=== PATIENT | female | born 1965 | race Caucasian/White ===

== ENCOUNTER 2017-08-16 11:01 | Observation (INO) | payer MEDICAID ==
[2017-08-16] VITALS (7 sets, daily range): BP systolic 100–158; BP diastolic 48–101
[~2017-08-16] VITALS: Ht 160 cm; Wt 149.3 kg
[2017-08-16] MEDS ORDERED: GLIPIZIDE10 MG PO (11:14)
[2017-08-16] MEDS ORDERED: POTASSIUM CHLOR8 MEQ PO (11:14)
[2017-08-16] MEDS ORDERED: GABAPENTIN 400400 M1 PO (11:15)
[2017-08-16] MEDS ORDERED: BUSPIRONE HCL15 MG PO (11:15)
[2017-08-16] MEDS ORDERED: FUROSEMIDE 40MG40 M1 PO (11:15)
[2017-08-16] MEDS ORDERED: BASAGLAR K100 UNIT/1 SQ (11:16)
[2017-08-16] MEDS ORDERED: METFORMIN HCL1000 MG PO (11:16)
[2017-08-16] MEDS ORDERED: ATORVASTATIN CA20 M1 PO (11:16)
[2017-08-16] MEDS ORDERED: CITALOPRAM HYDR40 MG PO (11:16)
[2017-08-16] MEDS ORDERED: CYCLOBENZAPRINE10 M1 PO (11:17)
--- NOTE | 2017-08-16 11:32 | Emergency Room Report ---
History of Present Illness Time Seen by MD Ruiz Presenting Problem in Triage Pt arrived:Wheelchair Presenting Problem:PT REPORTS BOIL R GROIN AREA AND UNDER L BREAST, PT REPORTS SHE SAW HER PCP ON THURSDAY WAS SUPPOSED TO BEGIN ANTIBIOTICS BUT STATES THE PRESCRIPTION WAS NOT CALLED IN AND SHE WAS UNABLE TO CONTACT HER PCP ABOUT THIS. 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 N Clinical Suspician of Infection? N Mental Status: 1 - Regular (Normal Baseline) Sepsis Risk:Low Sepsis Risk Have you (or family members/close friends) recently traveled outside the [place]? N If Yes, where/when: Have you had exposure to infectious disease within the past month? N TB? Other? Specify: 52 years old white female with type 2 diabetes, hypertension and frequent skin boils. She developed to a boils 1 on the LEFT breast and one on the RIGHT groin 2 days ago. She was seen by her primary care physician and prescribed antibiotic for her that she was unable to obtain. She started vomiting yesterday. Times and multiple diarrhea. She feels weak and dizzy. She denies chest pain or abdominal pain. Source patient, RN notes reviewed, family Exam Limitations no limitations ALLERGIES Coded Allergies: ORANGE JUICE (FOOD) (Mild, . 07/08/17) ceftriaxone (From ROCEPHIN) (Mild, 07/08/17) morphine (Mild, 07/08/17) tetracycline (Mild, 07/08/17) Home Medications Reported Medications Glipizide 10 MG PO BID #60 Potassium Chloride 8 MEQ PO BID #60 Furosemide 40 MG PO DAILY #30 Gabapentin (Gabapentin 400MG Capsule) 400 MG PO TID #90 Buspirone Hcl 15 MG PO BID #60 Atorvastatin Calcium 20 MG PO QHS #30 METFORMIN HCL (Metformin 1000MG) 1,000 MG PO BID #60 Citalopram Hydrobromide (Citalopram HBr) 40 MG PO DAILY #30 Insulin Glargine,Hum.rec.anlog (Basaglar Kwikpen U-100) 30 UNIT SQ QHS #15 Cyclobenzaprine Hcl 10 MG PO BID #30 History Medical History General CAD? No Angina: No [place]: No Hypertension? No Hyperlipidemia? Yes CHF? Yes DVT? No PE? No COPD? Yes Asthma? Yes Anemia? No GERD? No Gastric ulcers? No GI Bleed? No Hernia? No Thyroid Problems? No Hypothyroidism? No CVA? No Seizures? No Diabetes? Yes Insulin Dependent: Yes Insulin Pump: No Home FSBS? No Renal Insuffiency? No End Stage Renal Disease? No UTI? No Stones? Yes GB Disease: No Nephritic Syndrome? No Asplenia? No Hepatitis? No Sickle Cell Disease? No Arthritis? Yes Migraines? No Cataracts? No Glaucoma? No MRSA? Yes HIV? No TB? No Anxiety? Yes Depression? No Cancer? No More? 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 Respiratory no symptoms reported Cardiovascular no symptoms reported Gastrointestinal see HPI, diarrhea, nausea, vomiting Genitourinary no symptoms reported. Musculoskeletal no symptoms reported Skin see HPI (skin the) Psychiatric/Neurological no symptoms reported Physical Exam Vital Signs Vital Signs Date Time Temp Pulse Resp B/P Pulse O2 O2 Flow FiO2 Ox Delivery Rate 08/16 1337 93 18 121/78 91 08/16 1258 86 18 134/69 91 08/16 1151 89 152/99 08/16 1151 89 18 152/99 95 08/16 1148 91 161/109 08/16 1145 86 157/103 08/16 1106 98.3 86 18 158/101 95 Sitting in a wheelchair holding the vomiting bag (Cuco NAVARRO,[facility]) - WBC >12,000 or <4,000 or 10% bands? 2 or more SIRS Criteria Met? B/P:158/101 MAP:120 Creatinine >2.0? UA output<0.5ml/kg/hr for 2 hrs? Platelet count >100,000? Lactate >2.0mmol/1? INR >1.2 or PTT > than 60 sec? Evidence of Organ Dysfunction? Provider documented clinical suspician of infection? N Sepsis Criteria Count: 0 Sepsis Risk: Low Sepsis Risk General Appearance normal appearance, WD/WN Eye Exam - bilateral eye normal exam, bilateral eye PERRL, bilateral eye EOMI Ear, Nose, Throat hearing grossly normal, normal ENT inspection Neck normal inspection, non-tender, supple, full range of motion Respiratory Status Yes: trachea midline, chest symmetrical, non tender chest. No: respiratory distress. Lung Sounds bilateral: normal breath sounds, lungs clear. Cardiovascular normal exam, regular rate/rhythm, no peripheral edema, no gallop, no JVD, no murmur, no rub, normal peripheral pulses Peripheral Pulses Pulses normal Yes Gastrointestinal normal bowel sounds, normal exam, non tender, soft, no organomegaly, no guarding, no rebound, huge pendulous abdomen with multiple folds and intertrigo rash. was unable to locate the groin abscess she was reporting. no guarding no rigidity nor rebound across rebound positive bowel sounds. Back normal inspection, no CVA tenderness, no vertebral tenderness Extremities non-tender, normal range of motion, normal inspection Neurologic alert, hand profiler II-XII nml as tested, normal exam, oriented x 3 Reflexes Reflexes normal Yes Skin rash, 1 inch area of erythema with central ulceration surrounded by irritation from the Band-Aids, she has no purulent discharge no axillary lymph nodes., intertrigo rash in the lower abdominal skin fold as described in abdominal exam Medical Decision Making LABS/Meds/Orders Pt receiving controlled substance in ED? No Results/Orders Laboratory Tests 08/16/17 1320: ABG pH 7.35, ABG pCO2 (Temp Corrct 50.8 H, ABG pO2 (Temp Correct 71.8 L, ABG HCO3 27.2 H, ABG Total CO2 28.7 H, ABG O2 Sat (Calculated) 93.3, ABG Base Excess 1.5, Jose Test ACCEPTABLE, Blood Gas Comments LEFT RADIAL 08/16/17 1255: Urine Color YELLOW, Urine Appearance SL CLOUDY, Urine pH 6.0, Ur Specific [place] 1.020, Urine Protein TRACE H, Urine Ketones NEGATIVE, Urine Blood NEGATIVE, Urine Nitrate NEGATIVE, Urine Bilirubin NEGATIVE, Urine Urobilinogen 0.2, Ur Leukocyte Esterase NEGATIVE, Urine WBC 3-5, Ur Squamous Epith Cells 10- 20, Urine Bacteria 3+, Urine Mucus 1+, Urine Glucose NEGATIVE 08/16/17 1150: Troponin I < 0.02 08/16/17 1150: Lactic Acid 1.5 08/16/17 1150: Sodium 141, Potassium 3.7, Chloride 103, Carbon Dioxide 32, BUN 16, Creatinine 0.9, Estimated Creat Clear 164, Estimated GFR (MDRD) 66, Glucose 216 H, Calcium 8.9, Magnesium 1.9, Total Bilirubin 0.7, AST 63 H, ALT 69, Alkaline Phosphatase 119 H, Total Protein 7.6, Albumin 3.5, Globulin 4.1 H, Albumin/Globulin Ratio 0.9 L, WBC 9.0, RBC 4.53, Hgb 13.1, Hct 39.7, MCV 87.6, RDW 13.7, Plt Count 223 , MPV 8.9, Gran % 62.3, Gran # 5.6, Lymphocytes % 28.3, Monocytes % 4.6, Eosinophils % 4.4, Basophils % 0.3, Lymphocytes # 2.5, Monocytes # 0.4, Eosinophils # 0.4, Basophils # 0.0, PUBS MCHC 32.9, MCH 28.8 Current Medication Orders Sig/Jorge Start time Last Medication Dose Route Stop Time Status Admin Vancomycin HCl 1,250 MG ONCE ONE 08/16 1345 AC IV 08/16 1346 Insulin Human [rDNA 4 UNITS ONCE ONE 08/16 1330 DC 08/16 origin] SC 08/16 1331 1320 Ondansetron HCl 4 MG ONCE ONE 08/16 1330 DC 08/16 IV 08/16 1331 1320 Insulin Human [rDNA 0 .STK-MED ONE 08/16 1319 DC origin] SC Ondansetron HCl 0 .STK-MED ONE 08/16 1317 DC .ROUTE Albuterol/Ipratropium 3 ML ONCE ONE 08/16 1300 DC 08/16 INH 08/16 1301 1310 Ondansetron HCl 0 .STK-MED ONE 08/16 1150 DC .ROUTE Sodium Chloride 1,000 ML .STK-MED ONE 08/16 1150 DC IV Trimethoprim/ 0 .STK-MED ONE 08/16 1150 DC Sulfamethoxazole PO Ondansetron HCl 4 MG ONCE ONE 08/16 1145 DC 08/16 IV 08/16 1146 1159 Sodium Chloride 1,000 ML .Q1H1M 08/16 1145 DC 08/16 IV 08/16 1245 1159 Sodium Chloride 10 ML PRN PRN 08/16 1145 AC IV 08/17 1134 Sodium Chloride 10 ML PRN PRN 08/16 1145 AC IV 08/17 1135 Trimethoprim/ 2 TABLET ONCE ONE 08/16 1145 DCr 08/16 Sulfamethoxazole PO 08/16 1146 1159 Orders Procedure Date/time Status [id number] FAT/LO CHO/BERNARDO 08/16 D Active Decision to admit 08/16 1339 Active RT REQUEST DUONEB 08/16 1300 Active ARTERIAL BLOOD GAS REQUEST 08/16 1300 Active CULTURE, URINE 08/16 1255 Active URINALYSIS/COMPLETE 08/16 1238 Complete CULTURE, BLOOD 08/16 1157 Active LACTIC ACID 08/16 1140 Complete TROPONIN I 08/16 1139 Complete IV SALINE LOCK 08/16 1136 Active ABD ACUTE(MUL VIEWS) 08/16 1133 Active ELECTROCARDIOGRAM REQUEST 08/16 1132 Active ORTHOSTATIC B/P 08/16 1132 Active MAGNESIUM 08/16 1132 Complete DIARRHEA PANEL, PCR 08/16 1132 Active CBC WITH AUTO DIFF 08/16 1132 Complete CHEM 12 PROFILE 08/16 1132 Complete CM/EKG CM/EKG EKG rate, NSR, rhythm, no evid. of ischemic chgs, no ectopy, normal [place], normal EKG, normal sinus rhythm 8110 minutes poor R-wave progression baseline artifact no acute findings XRAY/CT/US XRAY/CT/US XRAY chest XR interpretation by reviewed by me Comment CXR positive PVC KUB small bowel and colonic pattern without ileus. Departure Departure Time of Disposition 1334 Disposition Still a Patient Clinical Impression Primary Impression: COPD (chronic obstructive pulmonary disease) Secondary Impressions: Cellulitis, CHF (congestive heart failure), Lymphedema, Vomiting and diarrhea Condition STABLE Referrals Pablo NAVARRO,Vu Felipe (Family) Additional Instructions She remained nauseaous and attempted to vomit, her pulse ox was 89% so i obtained ABG showed CO2 retention. I called Dr Hughes who is covering Dr. Edgar who agreed to admit her and start her on vancomycin and lasix. SHe was admited in a hemodynamically stable condition. Discharge Counseling Counseled pt/family regarding diagnosis, test results, medications/RX, follow up needs ED Critical Care Critical Care No If Critical Care minutes are documented, the time involved in the performance of seperately reportable procedures was not counted toward critical care time documented. I directly delivered medical care to this critically ill and/or injured patient. Timely evaluation and treatment was necessary to address the significant organ system(s) dysfunction present in this patient. at 1345
[2017-08-16 12:01] LABS: HEMOGLOBIN 13.1 g/dL (12.2-16.2); LYMPH # 2.5 K/mm3 (0.7-4.5); LYMPH % 28.3 % (10-50.0)
[2017-08-16 13:12] LABS: URINE BILIRUBIN - DIPSTICK NEGATIVE (NEG); URINE BLOOD NEGATIVE (NEG)
[2017-08-16 13:29] LABS: ALLEN'S TEST ACCEPTABLE; ARTERIAL ABE 1.5 MMOL/L (-2.4-+2.3); ARTERIAL PO2 71.8 MMHG (80-100); ARTERIAL TCO2 28.7 MMOL/L (23-27); OXYGEN ROOM AIR
--- NOTE | 2017-08-16 14:14 | CONSULT NOTE ---
Pharmacokinetic Consult Date of consult: 08/16/17 Time of consult: 1411 Referring provider: DR. HUGHES Reason for consult: VANCOMYCIN DOSING Allergies: Coded Allergies: ORANGE JUICE (FOOD) (Mild, . 07/08/17) ceftriaxone (From ROCEPHIN) (Mild, 07/08/17) morphine (Mild, 07/08/17) tetracycline (Mild, 07/08/17) Home Medications: Reported Medications Glipizide 10 MG PO BID #60 Potassium Chloride 8 MEQ PO BID #60 Furosemide 40 MG PO DAILY #30 Gabapentin (Gabapentin 400MG Capsule) 400 MG PO TID #90 Buspirone Hcl 15 MG PO BID #60 Atorvastatin Calcium 20 MG PO QHS #30 METFORMIN HCL (Metformin 1000MG) 1,000 MG PO BID #60 Citalopram Hydrobromide (Citalopram HBr) 40 MG PO DAILY #30 Insulin Glargine,Hum.rec.anlog (Basaglar Kwikpen U-100) 30 UNIT SQ QHS #15 Cyclobenzaprine Hcl 10 MG PO BID #30 Height (feet): 5 Height (inches): 3.00 Medical History: CAD? No Angina: No [place]: No Hypertension? No Hyperlipidemia? Yes CHF? Yes DVT? No PE? No COPD? Yes Asthma? Yes Anemia? No GERD? No Gastric ulcers? No GI Bleed? No Hernia? No Thyroid Problems? No Hypothyroidism? No CVA? No Seizures? No Diabetes? Yes Insulin Dependent: Yes Insulin Pump: No Home FSBS? No Renal Insuffiency? No UTI? No Stones? Yes GB Disease: No Nephritic Syndrome? No Asplenia? No Hepatitis? No Sickle Cell Disease? No Arthritis? Yes Migraines? No Cataracts? No Glaucoma? No MRSA? Yes HIV? No TB? No Anxiety? Yes Depression? No Cancer? No More? No Labs: Laboratory Tests 08/16/17 1320: ABG pH 7.35, ABG pCO2 (Temp Corrct 50.8 H, ABG pO2 (Temp Correct 71.8 L, ABG HCO3 27.2 H, ABG Total CO2 28.7 H, ABG O2 Sat (Calculated) 93.3, ABG Base Excess 1.5, Jose Test ACCEPTABLE, Blood Gas Comments LEFT RADIAL 08/16/17 1255: Urine Color YELLOW, Urine Appearance SL CLOUDY, Urine pH 6.0, Ur Specific [place] 1.020, Urine Protein TRACE H, Urine Ketones NEGATIVE, Urine Blood NEGATIVE, Urine Nitrate NEGATIVE, Urine Bilirubin NEGATIVE, Urine Urobilinogen 0.2, Ur Leukocyte Esterase NEGATIVE, Urine WBC 3-5, Ur Squamous Epith Cells 10- 20, Urine Bacteria 3+, Urine Mucus 1+, Urine Glucose NEGATIVE 08/16/17 1150: Troponin I < 0.02 08/16/17 1150: Lactic Acid 1.5 08/16/17 1150: Sodium 141, Potassium 3.7, Chloride 103, Carbon Dioxide 32, BUN 16, Creatinine 0.9, Estimated Creat Clear 164, Estimated GFR (MDRD) 66, Glucose 216 H, Calcium 8.9, Magnesium 1.9, Total Bilirubin 0.7, AST 63 H, ALT 69, Alkaline Phosphatase 119 H, Total Protein 7.6, Albumin 3.5, Globulin 4.1 H, Albumin/Globulin Ratio 0.9 L, WBC 9.0, RBC 4.53, Hgb 13.1, Hct 39.7, MCV 87.6, RDW 13.7, Plt Count 223 , MPV 8.9, Gran % 62.3, Gran # 5.6, Lymphocytes % 28.3, Monocytes % 4.6, Eosinophils % 4.4, Basophils % 0.3, Lymphocytes # 2.5, Monocytes # 0.4, Eosinophils # 0.4, Basophils # 0.0, PUBS MCHC 32.9, MCH 28.8 Microbiology 08/16 1255 URINE CC: Urine Culture - RECD 08/16 1150 BLOOD: Anaerobic Blood Culture - RECD 08/16 1150 BLOOD: Aerobic Blood Culture - RECD Problem List: 1. Cellulitis Plan: BASED ON PATIENT'S FACTORS, RECOMMEND STARTING WITH VANCOMYCIN 2000 MG Q12H AT THIS TIME. WILL OBTAIN TROUGH LEVEL PRIOR TO 3RD DOSE TO DETERMINE CLEARANCE OF VANCOMYCIN. PHARMACY WILL FOLLOW DAILY AND ADJUST APPROPRIATE. ENRIQUE RUIZD at [phone]
[2017-08-16] MEDS ORDERED: CLARITIN REDITAB5 M1 PO (14:35)
[2017-08-16] MEDS ORDERED: NATURE'S BLEND M3 MG PO (15:39)
--- NOTE | 2017-08-16 16:49 | RADIOLOGY REPORT PS360 ---
ABD ACUTE(MUL VIEWS) HISTORY: NVDnausea vomiting diarrhea 3 days Patient Age: 52 years: Female Ordering Physician: Jos Norwood MD TECHNIQUE: Upright chest with flat and upright views of abdomen COMPARISON :rib series FINDINGS Large patient Upright chest. Cardiomegaly. Mild vascular engorgement. Question slight hazy opacity towards right upper lobe. Lung bases are clear unremarkable. No pleural effusion. No free air. The flat and upright views of abdomen reveal no free air. Borderline/slightly dilated small bowel loops towards the RLQ as well as midline at the lower abdomen & projected over the sacrum. Minimal air-fluid levels here.. Findings may reflect enteritis or ileus,. Less likely but not exclude very early obstruction pattern. If symptoms progress consider CT in this large patient to better evaluate. There is minimal stool throughout the colon. Minimal gas. Prominent air-fluid level is also seen at the moderately distended stomach Clips right upper quadrant from cholecystectomy. Vascular clips also seen at the pelvis bilaterally likely from hysterectomy. IMPRESSION. 1. Abdomen: Minimally dilated loops of small bowel seen at lower abdomen towards RLQ. Most likely reflecting enteritis although could reflect localized ileus. Doubt early obstruction at this point. If symptoms progress may warrant follow-up study or CT. .No free air. .Previous cholecystectomy. Likely hysterectomy. Large patient. 2. Upright Chest.. No free air. Cardiomegaly. Mild vascular engorgement. Upper normal markings toward RUL
--- NOTE | 2017-08-16 20:46 | HISTORY AND PHYSICAL REPORT ---
Demographics: Admit date: 08/16/17 Chief complaint: skin infection PRIMARY DIAGNOSIS: COPD Allergies: Coded Allergies: ORANGE JUICE (FOOD) (Mild, . 07/08/17) ceftriaxone (From ROCEPHIN) (Mild, 07/08/17) morphine (Mild, 07/08/17) tetracycline (Mild, 07/08/17) History of present illness: History of present illness: jodi who was seen in the ed with skin infections with assoc vomiting and unable to keep medication down - she had been seen in the pcp and started on abx - pt has diabetes Past medical history: Family HX Family Hx Insignificant Yes Immunization HX DT/Tetanus 1-4 Years Ago Pneumonia Received In Past TB Test in last year No General CAD? No Angina: No [place]: No Hypertension? No Hyperlipidemia? Yes CHF? Yes DVT? No PE? No COPD? Yes Asthma? Yes Anemia? No GERD? No Gastric ulcers? No GI Bleed? No Hernia? Yes Thyroid Problems? No Hypothyroidism? No CVA? No Seizures? No Diabetes? Yes Insulin Dependent: Yes Insulin Pump: No Home FSBS? Yes Renal Insuffiency? No UTI? Yes Stones? Yes BPH? No GB Disease: Yes Nephritic Syndrome? No Asplenia? No Hepatitis? No Sickle Cell Disease? No Arthritis? Yes Migraines? Yes Cataracts? No Glaucoma? No MRSA? Yes HIV? No TB? No Anxiety? Yes Depression? Yes Cancer? No More? No Additional hx: TRACH-REMOVED GTUBE-REMOVED INTUBATION IN PAST Past Surgical HX Previous Surgery?Y GALLBLADDER REMOVED TRACHEOTOMY PARTIAL HYSTERECTOMY TUBAL LIGATION KIDNEY STONES Current home meds: Reported Medications Citalopram Hydrobromide (Citalopram HBr) 40 MG PO QHS #30 TAB Loratadine (Claritin) 5 MG PO DAILY Melatonin 3 MG PO QHS Glipizide 10 MG PO BID #60 Potassium Chloride 8 MEQ PO BID #60 Furosemide 40 MG PO DAILY #30 Gabapentin (Gabapentin 400MG Capsule) 400 MG PO TID #90 Buspirone Hcl 15 MG PO BID #60 Atorvastatin Calcium 20 MG PO QHS #30 METFORMIN HCL (Metformin 1000MG) 1,000 MG PO BID #60 Insulin Glargine,Hum.rec.anlog (Basaglar Kwikpen U-100) 30 UNIT SQ QHS #15 Cyclobenzaprine Hcl 10 MG PO BID #30 Social Hx: Smoking HX Tobacco No Are you/the child exposed to second-hand smoke: No Alcohol Alcohol: No Hx of Drug Use Drug Use? No Patien't marital status is Patient's support system is good Review of systems: Constitutional see HPI, weakness. No: fever. Eyes No: drainage. Ears, Nose, Mouth, Throat No ear discharge, No epistaxis, No throat pain Respiratory No: cough, shortness of breath, SOB with excertion, wheezing. Cardiovascular No chest pain, No palpitations, No syncope Gastrointestinal/Abdominal see HPI, No abdominal pain, No diarrhea, nausea, poor appetite, poor fluid intake, vomiting Genitourinary No: dysuria, frequency, hesitancy, hematuria. Musculoskeletal No: back pain, joint pain, joint swelling, neck pain. Skin No: rash. Neurological No: headache, seizure disorder. Psychiatric No: no symptoms reported. Exam: Lab data for last 24 hours: Laboratory Tests 08/16/17 1642: POC Glucose 139 H 08/16/17 1320: ABG pH 7.35, ABG pCO2 (Temp Corrct 50.8 H, ABG pO2 (Temp Correct 71.8 L, ABG HCO3 27.2 H, ABG Total CO2 28.7 H, ABG O2 Sat (Calculated) 93.3, ABG Base Excess 1.5, Jose Test ACCEPTABLE, Blood Gas Comments LEFT RADIAL 08/16/17 1255: Urine Color YELLOW, Urine Appearance SL CLOUDY, Urine pH 6.0, Ur Specific [place] 1.020, Urine Protein TRACE H, Urine Ketones NEGATIVE, Urine Blood NEGATIVE, Urine Nitrate NEGATIVE, Urine Bilirubin NEGATIVE, Urine Urobilinogen 0.2, Ur Leukocyte Esterase NEGATIVE, Urine WBC 3-5, Ur Squamous Epith Cells 10- 20, Urine Bacteria 3+, Urine Mucus 1+, Urine Glucose NEGATIVE 08/16/17 1150: Troponin I < 0.02 08/16/17 1150: Lactic Acid 1.5 08/16/17 1150: Sodium 141, Potassium 3.7, Chloride 103, Carbon Dioxide 32, BUN 16, Creatinine 0.9, Estimated Creat Clear 164, Estimated GFR (MDRD) 66, Glucose 216 H, Calcium 8.9, Magnesium 1.9, Total Bilirubin 0.7, AST 63 H, ALT 69, Alkaline Phosphatase 119 H, Total Protein 7.6, Albumin 3.5, Globulin 4.1 H, Albumin/Globulin Ratio 0.9 L, WBC 9.0, RBC 4.53, Hgb 13.1, Hct 39.7, MCV 87.6, RDW 13.7, Plt Count 223 , MPV 8.9, Gran % 62.3, Gran # 5.6, Lymphocytes % 28.3, Monocytes % 4.6, Eosinophils % 4.4, Basophils % 0.3, Lymphocytes # 2.5, Monocytes # 0.4, Eosinophils # 0.4, Basophils # 0.0, PUBS MCHC 32.9, MCH 28.8 Microbiology 08/16 1255 URINE CC: Urine Culture - RECD 08/16 1150 BLOOD: Anaerobic Blood Culture - RECD 08/16 1150 BLOOD: Aerobic Blood Culture - RECD Admission vital signs: 1ST Vital Signs Result Date Time Pulse Ox 95 08/16 1106 B/P 158/101 08/16 1106 Temp 98.3 08/16 1106 Pulse 86 08/16 1106 Resp 18 08/16 1106 O2 Delivery ROOM AIR 08/16 1432 Exam General appearance: awake, obese Eyes: PERRLA ENT: dry mucous membranes Neck: no JVD Cardiovascular: regular rate & rhythm, murmur Respiratory: no respiratory distress, diminished breath sounds ABD: soft Genitourinary: no hematuria Extremities: moves all Musculoskeletal: equal muscle strength Skin: boils on rt groin and ant chest area w/o abscess- tender 2x2 cm 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 COPD (chronic obstructive pulmonary disease) 2. Cellulitis 3. Obesity Plan: see above at 205
[2017-08-17 04:30] VITALS: BP 118/58
[2017-08-17 06:59] LABS: HEMOGLOBIN 12.9 g/dL (12.2-16.2); LYMPH # 3.5 K/mm3 (0.7-4.5); LYMPH % 34.1 % (10-50.0)
--- NOTE | 2017-08-17 07:19 | PHARMACY CLINIC NOTE ---
Patient Demographics Patient Demographics Admission date: 08/16/17 Date: 08/17/17 Time: 716 Allergies Coded Allergies: ORANGE JUICE (FOOD) (Mild, . 07/08/17) ceftriaxone (From ROCEPHIN) (Mild, 07/08/17) morphine (Mild, 07/08/17) tetracycline (Mild, 07/08/17) HEIGHT- FT: 5 IN: 3.00 K.260 VTE General Information Labs: Laboratory Tests 08/17 08/16 0630 1150 Hematology Hgb (12.2 - 16.2 g/dL) 12.9 13.1 Hct (37.0 - 47.0 %) 40.5 39.7 Plt Count (142 - 424 K/mm3) 251 223 Disclaimer The following section includes nursing documentation that has been pulled in for pharmacy review. Patient's VTE score: 7 Patient's VTE Risk: MOD RISK Clinical trial participant? No VTE prophylaxis NQF [id number] VTE prophylaxis ordered? Yes Type of prophylaxis/treatment: CYRUS at 0718
[2017-08-17 07:52] VITALS: BP 106/55
--- NOTE | 2017-08-17 08:34 | ACUTE CARE PROGRESS NOTE (QUA) ---
See Addendum Progress Notes Subjective Date 08/17/17 Time 0831 Note doing better Patient/family reports: feeling better Nursing reports: no complaints Objective Findings Last VS-Temp:97.0 B/P:106/55 Pulse:88 Resp:20 SaO2:95 ROOM AIR Last weight lbs:329 oz:1 K.26 Method:Bed Scales Exam General appearance: alert, awake Eyes: anicteric, PERRLA ENT: dry mucous membranes Neck: no JVD Cardiovascular: regular rate & rhythm Respiratory: no respiratory distress ABD: soft Genitourinary: no hematuria Extremities: moves all Musculoskeletal: equal muscle strength Skin: no abscess abd rt groin and lt breast lesions better 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 COPD (chronic obstructive pulmonary disease) 2. Cellulitis 3. Obesity Patient condition Improving Plan: order additional tests This inpt stay is expected to cross 2 MNs from start of care Yes Comments: will do pt eval and check o2 on room air at 0834
--- NOTE | 2017-08-17 08:34 | ACUTE CARE PROGRESS NOTE (QUA) ---
See Addendum Progress Notes Subjective Date 08/17/17 Time 0831 Note doing better Patient/family reports: feeling better Nursing reports: no complaints Objective Findings Last VS-Temp:97.0 B/P:106/55 Pulse:88 Resp:20 SaO2:95 ROOM AIR Last weight lbs:329 oz:1 K.26 Method:Bed Scales Exam General appearance: alert, awake Eyes: anicteric, PERRLA ENT: dry mucous membranes Neck: no JVD Cardiovascular: regular rate & rhythm Respiratory: no respiratory distress ABD: soft Genitourinary: no hematuria Extremities: moves all Musculoskeletal: equal muscle strength Skin: no abscess abd rt groin and lt breast lesions better 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 COPD (chronic obstructive pulmonary disease) 2. Cellulitis 3. Obesity Patient condition Improving Plan: order additional tests This inpt stay is expected to cross 2 MNs from start of care Yes Comments: will do pt eval and check o2 on room air at 0834
[2017-08-17 08:41] VITALS: BP 106/55
--- NOTE | 2017-08-17 13:13 | CONSULT NOTE ---
Pharmacokinetic Consult Date of consult: 08/17/17 Time of consult: 1312 Referring provider: DR. HUGHES Reason for consult: VANCOMYCIN TROUGH LEVEL Allergies: Coded Allergies: ORANGE JUICE (FOOD) (Mild, . 07/08/17) ceftriaxone (From ROCEPHIN) (Mild, 07/08/17) morphine (Mild, 07/08/17) tetracycline (Mild, 07/08/17) Home Medications: Reported Medications Cyclobenzaprine Hcl 10 MG PO BID #30 TAB Citalopram Hydrobromide (Citalopram HBr) 40 MG PO QHS #30 TAB Loratadine (Claritin) 5 MG PO DAILY Melatonin 3 MG PO QHS Glipizide 10 MG PO BID #60 Potassium Chloride 8 MEQ PO BID #60 Furosemide 40 MG PO DAILY #30 Gabapentin (Gabapentin 400MG Capsule) 400 MG PO TID #90 Buspirone Hcl 15 MG PO BID #60 Atorvastatin Calcium 20 MG PO QHS #30 METFORMIN HCL (Metformin 1000MG) 1,000 MG PO BID #60 Insulin Glargine,Hum.rec.anlog (Basaglar Kwikpen U-100) 30 UNIT SQ QHS #15 Height (feet): 5 Height (inches): 3.00 Medical History: CAD? No Angina: No ID: No Hypertension? No Hyperlipidemia? Yes CHF? Yes DVT? No PE? No COPD? Yes Asthma? Yes Anemia? No GERD? No Gastric ulcers? No GI Bleed? No Hernia? Yes Thyroid Problems? No Hypothyroidism? No CVA? No Seizures? No Diabetes? Yes Insulin Dependent: Yes Insulin Pump: No Home FSBS? Yes Renal Insuffiency? No UTI? Yes Stones? Yes BPH? No GB Disease: Yes Nephritic Syndrome? No Asplenia? No Hepatitis? No Sickle Cell Disease? No Arthritis? Yes Migraines? Yes Cataracts? No Glaucoma? No MRSA? Yes HIV? No TB? No Anxiety? Yes Depression? Yes Cancer? No More? No Additional hx: TRACH-REMOVED GTUBE-REMOVED INTUBATION IN PAST Labs: Laboratory Tests 08/17/17 1240: Vancomycin Trough 16.2 08/17/17 1140: POC Glucose 216 H 08/17/17 0639: POC Glucose 167 H 08/17/17 0630: Sodium 141, Potassium 3.6, Chloride 103, Carbon Dioxide 32, BUN 14, Creatinine 0.9, Estimated Creat Clear 172, Estimated GFR (MDRD) 66, Glucose 182 H, Calcium 8.6, WBC 10.2, RBC 4.52, Hgb 12.9, Hct 40.5, MCV 89.5, RDW 13.7, Plt Count 251, MPV 8.4, Gran % 56.5, Gran # 5.8, Lymphocytes % 34.1, Monocytes % 5.5, Eosinophils % 3.3, Basophils % 0.5, Lymphocytes # 3.5, Monocytes # 0.6, Eosinophils # 0.3, Basophils # 0.1, PUBS MCHC 31.9, MCH 28.6 08/16/17 2020: POC Glucose 216 H 08/16/17 1642: POC Glucose 139 H 08/16/17 1320: ABG pH 7.35, ABG pCO2 (Temp Corrct 50.8 H, ABG pO2 (Temp Correct 71.8 L, ABG HCO3 27.2 H, ABG Total CO2 28.7 H, ABG O2 Sat (Calculated) 93.3, ABG Base Excess 1.5, Jose Test ACCEPTABLE, Blood Gas Comments LEFT RADIAL Problem List: 1. Cellulitis Plan: BASED ON PATIENT FACTORS, RECOMMEND CONTINUING VANCOMYCIN 2 GM IV Q12H. PHARMACY WILL CONTINUE TO MONITOR DAILY AND ADJUST APPROPRIATE. at 1313
[2017-08-17 16:00] VITALS: BP 98/57
[2017-08-17 20:00] VITALS: BP 149/91
[2017-08-17 20:30] VITALS: BP 149/91
[2017-08-18 04:22] VITALS: BP 145/89
[2017-08-18 07:20] VITALS: BP 139/71
--- NOTE | 2017-08-18 08:04 | ACUTE CARE PROGRESS NOTE (QUA) ---
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 COPD (chronic obstructive pulmonary disease) 2. Cellulitis 3. Obesity Patient condition Improving Plan: initiate discharge plan This inpt stay is expected to cross 2 MNs from start of care Yes Comments: will need home services and po abx and does qualify for o2 at 0803
--- NOTE | 2017-08-18 08:04 | ACUTE CARE PROGRESS NOTE (QUA) ---
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 COPD (chronic obstructive pulmonary disease) 2. Cellulitis 3. Obesity Patient condition Improving Plan: initiate discharge plan This inpt stay is expected to cross 2 MNs from start of care Yes Comments: will need home services and po abx and does qualify for o2 at 0803
--- NOTE | 2017-08-18 08:13 | DISCHARGE SUMMARY STANDARD ---
Demographics Admit date: 08/16/17 Discharge date: 08/18/17 History of present illness History of present illness wf who was seen in the ed with skin infections with assoc vomiting and unable to keep medication down - she had been seen in the pcp and started on abx - pt has diabetes Hospital Course Hospital Course: pt with iv abx as she had not responded to op treatment and had factors of obesity and diabetes mellitus- pt with low sat and will need home o2 as sat to 77 on room air and will need home health and ot/pt and intermediate Discharge diagnoses Problem List 1. COPD (chronic obstructive pulmonary disease) 2. Cellulitis 3. Obesity 4. Diabetes mellitus Medications Medications: Discharge meds are as noted. Comment: will follow in office next week Follow up Follow up in office in: 7 DAYS with: Lynda Betancourt at 0813
--- NOTE | 2017-08-18 08:13 | DISCHARGE SUMMARY STANDARD ---
Demographics Admit date: 08/16/17 Discharge date: 08/18/17 History of present illness History of present illness wf who was seen in the ed with skin infections with assoc vomiting and unable to keep medication down - she had been seen in the pcp and started on abx - pt has diabetes Hospital Course Hospital Course: pt with iv abx as she had not responded to op treatment and had factors of obesity and diabetes mellitus- pt with low sat and will need home o2 as sat to 77 on room air and will need home health and ot/pt and usp Discharge diagnoses Problem List 1. COPD (chronic obstructive pulmonary disease) 2. Cellulitis 3. Obesity 4. Diabetes mellitus Medications Medications: Discharge meds are as noted. Comment: will follow in office next week Follow up Follow up in office in: 7 DAYS with: Lynda Betancourt at 0813
[2017-08-18 14:48] VITALS: BP 139/71
--- OUTSIDE RECORDS SUMMARY | 2017-09-08 21:21 | External Medical Summary Rpt ---
Author Author , MIKAELA AL Address Unknown Phone [email or web address] Purpose Continuity of Care Document - 08-16-2017 through 2016 Allergies, Adverse Reactions, Alerts Clinical Alert Notifications Alert Diabetes: no A1C in the last 6 months Diabetes: no eye exam in the last 365 days Diabetes: no influenza vaccine in the last 365 days Diabetes: no lipid panel in the last 365 days Diabetes: no urine protein screening in the last 365 days Medications Na ND Rx Da Fi Fi Am Da Di Ph RX Ph St me C No te ll ll ou ys ag ar # ys at rm s nt no ma ic us Or Da si cy ia de te s n re d FU 69 09 10 30 30 00 EA Ac RO 31 -1 -[address] ti SE 50 5- 6- 00 00 SI ve OR 11 20 20 50 DE DE 71 17 17 18 0 09 PH 40 AR MA MG CY TA OF BL CY ET NT HI AN A IN C ME 68 09 10 60 30 00 EA Ac TF 38 -1 -[address] ti OR 20 5- 6- 00 00 SI ve OR 76 20 20 50 DE N 01 17 17 18 HC 0 10 PH L AR 1, MA 00 CY 0 MG OF CY TA NT BL HI ET AN A IN C GL 00 09 10 60 30 00 EA Ac IP 78 -1 -[address] ti IZ 11 5- 6- 00 00 SI ve ID 45 20 20 50 DE E 30 17 17 18 10 1 11 PH AR MG MA CY TA BL OF ET CY NT HI AN A IN C PO 00 09 10 60 30 00 EA Ac TA 57 -1 -[address] ti SS 40 5- 6- 00 00 SI ve IU 27 20 20 50 DE M 40 17 17 18 CL 1 12 PH AR ER MA 8 CY ME OF Q CY TA NT BL HI ET AN A IN C BU 00 09 10 60 30 00 EA Ac SP 37 -1 -[address] ti IR 81 5- 6- 00 00 SI ve ON 16 20 20 50 DE E 50 17 17 18 HC 5 13 PH L AR 15 MA CY MG OF TA CY BL NT ET HI AN A IN C CI 13 09 10 30 30 00 EA Ac TA 66 -1 -[address] ti LO 80 5- 6- 00 00 SI ve MS 01 20 20 50 DE AM 10 17 17 18 5 14 PH HB AR R MA 40 CY MG OF CY TA NT BL HI ET AN A IN C AT 60 09 10 30 30 00 EA Ac OR 50 -1 -[address] ti VA 52 5- 6- [address] 57 20 20 50 DE AT 90 17 17 18 IN 9 15 PH AR 20 MA CY MG OF TA CY BL NT ET HI AN A IN C BA 00 09 10 15 30 00 EA Ac SA 00 -1 -[address] ti GL 27 5- 6- 00 00 SI ve AR 71 20 20 50 DE 55 17 17 18 10 9 16 PH 0 AR UN MA IT CY /M L OF KW CY IK NT PE HI N AN A IN C CY 00 09 10 30 30 00 EA Ac CL 37 -1 -[address] ti OB 80 5- 6- 00 00 SI ve EN 75 20 20 50 DE ZA 11 17 17 18 MS 0 23 PH IN AR E MA 10 CY MG OF CY TA NT BL HI ET AN A IN C GA 67 09 10 90 30 00 EA Ac BA 87 -1 -[address] ti PE 70 5- 6- 00 00 SI ve NT 22 20 20 50 DE IN 40 17 17 18 5 24 PH 40 AR 0 MA MG CY CA OF PS CY UL NT E HI AN A IN C UN 08 09 10 10 30 00 EA Ac IF 47 -1 -[address] ti IN 03 5- 6- 00 00 SI ve E 52 20 20 0 50 DE PE 90 17 17 18 NT 1 17 PH IP AR S MA 12 CY MM OF 29 CY G NT HI AN A IN C Results Labs Lab Lab Date Result Refere Interp Status Commen Order Detail nces retati t Range on Hemoglobin A1c in Blood (08-26-2017 08:19) Hemoglo 8.5 % 0.0% High complet bin A1c 017 - ed in 08:19 7.0% Blood Gas panel in Arterial blood (08-16-2017 13:20) Arteria ACCEPTA complet l 017 BLE ed patency 13:20 Wrist artery --pre arteria l punctur e SOURCE LEFT complet 017 RADIAL ed 13:20 Urinalysis dipstick W Reflex Microscopic panel in Urine (08-16-2017 12:55) Bacteri 3+ O complet a 017 ed [Presen 12:55 ce] in Urine sedimen t by Light microsc opy Mucus 1+ OCC complet [Presen 017 ed ce] in 12:55 Urine sedimen t by Light microsc opy Epithel 10-20 0#/hp complet ial 017 f - ed cells.s 12:55 5#/hp quamous f [Presen ce] in Urine sedimen t by Microsc opy high power field Leukocy 3-5 O complet evette 017 wbc/hpf ed [#/volu 12:55 me] in Urine Urinalysis dipstick W Reflex Microscopic panel in Urine (08-16-2017 12:55) Appeara SL CLEAR complet nce of 017 CLOUDY ed Urine 12:55 Bilirub NEGATIV NEG complet in 017 E ed [Presen 12:55 ce] in Urine by Test strip Erythro NEGATIV NEG complet cytes 017 E ed [Presen 12:55 ce] in Urine Color YELLOW YELLOW complet of 017 ed Urine 12:55 Ketones NEGATIV NEG complet 017 E ed [Presen 12:55 ce] in Urine by Automat ed test strip Mucus NEGATIV NEG complet [Presen 017 E ed ce] in 12:55 Urine sedimen t by Light microsc opy Nitrite NEGATIV NEG complet 017 E ed [Presen 12:55 ce] in Urine by Test strip Urobili 0.2 NEG complet nogen 017 ed [Presen 12:55 ce] in Urine by Test strip
--- OUTSIDE RECORDS SUMMARY | 2017-09-08 21:21 | External Medical Summary Rpt ---
Author Author , MIKAELA AL Address Unknown Phone [email or web address] Purpose Continuity of Care Document - 08-16-2017 [...] 50 5- 6- 00 00 SI ve ME 11 20 20 50 DE DE 71 17 17 18 0 09 PH 40 AR MA MG CY TA OF BL CY ET NT HI AN A IN C ME 68 09 10 60 30 00 EA Ac TF 38 -1 -[address] ti OR 20 5- 6- 00 00 SI ve ME 76 20 20 50 DE N 01 [...] 80 5- 6- 00 00 SI ve RI 01 20 20 50 DE AM 10 [...] 50 DE ZA 11 17 17 18 RI 0 23 PH IN AR E MA [...]
--- OUTSIDE RECORDS SUMMARY | 2017-09-08 21:22 | External Medical Summary Rpt ---
Author Author , MIKAELA AL Address Unknown Phone [email or web address] Purpose Continuity of Care Document - 09-04-2017 through 2016 Medications Na ND Rx Da Fi Fi [...] 50 5- 6- 00 00 SI ve AL 11 20 20 50 DE DE 71 17 17 18 0 09 PH 40 AR MA MG CY TA OF BL CY ET NT HI AN A IN C ME 68 09 10 60 30 00 EA Ac TF 38 -1 -[address] ti OR 20 5- 6- 00 00 SI ve AL 76 20 20 50 DE N 01 [...] 80 5- 6- 00 00 SI ve [place] 01 20 20 50 DE AM 10 [...] 50 DE ZA 11 17 17 18 [place] 0 23 PH IN AR E MA [...]
--- OUTSIDE RECORDS SUMMARY | 2017-09-08 21:22 | External Medical Summary Rpt ---
Demographics Preferred Language Maldivian Marital Status Unknown Lutheran Affiliation Unknown Race Unknown Ethnic Group Unknown Author Author MIKAELA Address Unknown Phone Immunization No patient found.
--- OUTSIDE RECORDS SUMMARY | 2017-09-08 21:22 | External Medical Summary Rpt ---
Demographics Preferred Language Bruneian Marital Status Unknown Zoroastrian Affiliation Unknown Race Unknown Ethnic Group Unknown Author Author MIKAELA Address Unknown Phone Immunization No patient found.
--- OUTSIDE RECORDS SUMMARY | 2017-09-08 21:22 | External Medical Summary Rpt ---
Author Author , MIKAELA AL Address Unknown Phone [email or web address] Purpose Continuity of Care Document - 09-04-2017 [...] 80 5- 6- 00 00 SI ve [place] 01 20 20 50 DE AM 10 [...] 50 DE ZA 11 17 17 18 WI 0 23 PH IN AR E MA [...]
--- OUTSIDE RECORDS SUMMARY | 2017-09-08 21:40 | External Medical Summary Rpt ---
Author Author , MIKAELA AL Address Unknown Phone [email or web address] Purpose Continuity of Care Document - 09-04-2017 [...] 50 5- 6- 00 00 SI ve [place] 11 20 20 50 DE DE 71 17 17 18 0 09 PH 40 AR MA MG CY TA OF BL CY ET NT HI AN A IN C ME 68 09 10 60 30 00 EA Ac TF 38 -1 -[address] ti OR 20 5- 6- 00 00 SI ve [place] 76 20 20 50 DE N 01 [...] 80 5- 6- 00 00 SI ve CA 01 20 20 50 DE AM 10 [...] 50 DE ZA 11 17 17 18 CA 0 23 PH IN AR E MA [...]
--- OUTSIDE RECORDS SUMMARY | 2017-09-08 21:40 | External Medical Summary Rpt ---
Demographics Preferred Language Sudanese Marital Status Unknown Baptism Affiliation Unknown Race Unknown Ethnic Group Unknown Author Author MIKAELA Address Unknown Phone Immunization No patient found.
--- OUTSIDE RECORDS SUMMARY | 2017-09-08 21:40 | External Medical Summary Rpt ---
Author Author , MIKAELA AL Address Unknown Phone [email or web address] Purpose Continuity of Care Document - 09-04-2017 [...] 50 5- 6- 00 00 SI ve PA 11 20 20 50 DE DE 71 17 17 18 0 09 PH 40 AR MA MG CY TA OF BL CY ET NT HI AN A IN C ME 68 09 10 60 30 00 EA Ac TF 38 -1 -[address] ti OR 20 5- 6- 00 00 SI ve PA 76 20 20 50 DE N 01 [...] 80 5- 6- 00 00 SI ve AR 01 20 20 50 DE AM 10 [...] 50 DE ZA 11 17 17 18 AR 0 23 PH IN AR E MA [...]
--- OUTSIDE RECORDS SUMMARY | 2017-09-08 21:40 | External Medical Summary Rpt ---
Author Author , MIKAELA AL Address Unknown Phone [email or web address] Purpose Continuity of Care Document - 08-16-2017 through 2016 Problems Code Diagnosis DOS Provider Status I50.9 HEART FAILURE, UNSPECIFIED I89.0 LYMPHEDEMA, NOT ELSEWHERE CLASSIFIED J44.9 CHRONIC OBSTRUCTIVE PULMONARY DISEASE, UNSPECIFIED L03.90 CELLULITIS, UNSPECIFIED R11.10 VOMITING, UNSPECIFIED Allergies, Adverse Reactions, Alerts Clinical Alert Notifications [...] 50 5- 6- 00 00 SI ve FL 11 20 20 50 DE DE 71 17 17 18 0 09 PH 40 AR MA MG CY TA OF BL CY ET NT HI AN A IN C ME 68 09 10 60 30 00 EA Ac TF 38 -1 -[address] ti OR 20 5- 6- 00 00 SI ve FL 76 20 20 50 DE N 01 [...] 80 5- 6- 00 00 SI ve [place] 01 20 20 50 DE AM 10 [...] 50 DE ZA 11 17 17 18 [place] 0 23 PH IN AR E MA [...] Hemoglobin A1c in Blood (08-26-2017 08:19) Hemoglo 09-27-2 8.5 % 0.0% High complet bin A1c [...]
--- OUTSIDE RECORDS SUMMARY | 2017-09-08 21:40 | External Medical Summary Rpt ---
Demographics Preferred Language Barbadian Marital Status Unknown Lutheran Affiliation Unknown Race Unknown Ethnic Group Unknown Author Author MIKAELA Address Unknown Phone Immunization No patient found.
--- OUTSIDE RECORDS SUMMARY | 2017-09-08 21:40 | External Medical Summary Rpt ---
Author Author , MIKAELA AL Address Unknown Phone [email or web address] Purpose Continuity of Care Document - 08-16-2017 [...] 50 5- 6- 00 00 SI ve [place] 11 20 20 50 DE DE 71 17 17 18 0 09 PH 40 AR MA MG CY TA OF BL CY ET NT HI AN A IN C ME 68 09 10 60 30 00 EA Ac TF 38 -1 -[address] ti OR 20 5- 6- 00 00 SI ve VT 76 20 20 50 DE N 01 [...] 80 5- 6- 00 00 SI ve ID 01 20 20 50 DE AM 10 [...] 50 DE ZA 11 17 17 18 ID 0 23 PH IN AR E MA [...]
== END 2017-08-18 14:17 | disposition home health service (06) ==
LOC: ER 11:01 → 2ND 13:44 → ER 13:44 → 2ND 14:18
PROVIDERS: Emergency Medicine
DX: L03.90 Cellulitis, unspecified (principal); J44.9 Chronic obstructive pulmonary disease, unspecified; I10 Essential (primary) hypertension; E11.9 Type 2 diabetes mellitus without complications
CPT/HCPCS: G0378; J2405; J3370

== ENCOUNTER → 2017-08-26 | Outpatient (CLI) | payer MEDICAID ==
[~2017-08-26] MED LIST: ATORVASTATIN CA20 M1 PO; BASAGLAR K100 UNIT/1 SQ; BUSPIRONE HCL15 MG PO; CITALOPRAM HYDR40 MG PO; CLARITIN REDITAB5 M1 PO; CYCLOBENZAPRINE10 M1 PO; FUROSEMIDE 40MG40 M1 PO; GABAPENTIN 400400 M1 PO; GLIPIZIDE10 MG PO; METFORMIN HCL1000 MG PO; NATURE'S BLEND M3 MG PO; POTASSIUM CHLOR8 MEQ PO
[2017-08-26 10:32] LABS: BUN 15 mg/dL (7-18)
[2017-08-26 11:03] LABS: GFR (ESTIMATED) 66 ML/MIN (59-)
[2017-08-26 12:03] LABS: LYMPH # 2.9 K/mm3 (0.7-4.5); LYMPH % 24.6 % (10-50.0)
== END ==
LOC: LAB 08:19
PROVIDERS: Nurse Practitioner Family
DX: R53.83 Other fatigue (principal); E55.9 Vitamin D deficiency, unspecified